=== PATIENT | male | born 1985 | race Caucasian/White ===

== ENCOUNTER 2019-05-04 16:08 | Emergency (ER) | payer OTHER, SELFPAY ==
[2019-05-04 16:11] VITALS: BP 120/84; PULSE 71; RESP 18; TEMP 36.6; O2SAT 94
[2019-05-04] MEDS: Povidone-Iodine Soln. 118 ML BTL (17:08)
--- NOTE | 2019-05-04 17:08 | ED.GENADUL_ITS ---
Discharge Plan Disposition Patient Disposition: HOME Condition: Good Discharge Details Chief Complaint: Laceration Clinical Impression: Laceration Primary Care Provider: Yaz Aragon ED Provider: Susanna Alvarado Home Meds and New Rx's Prescriptions: Continued dextroamphetamine-amphetamine [Adderall XR] 30 MG capsule,extended release 24hr 30 mg PO DAILY RF: 0 quetiapine [Seroquel] 50 MG tablet 50 mg PO HS RF: 0 Discharge Instructions Instructions: Laceration (ED) Additional Instructions: Keep initial dressing in place for 1 to 2 days then remove and begin cleaning once or twice daily. Wash with soap and water once or twice daily. Pat dry completely and apply topical antibiotic ointment. Suture removal in 10 to 14 days. Observe for any sign of infection. Return for any worsening or concerns sooner if needed Discharge Data Discharge Date/Time-TO BE ENTERED AT DEPARTURE: 05/04/19 18:20 Medical Decision Making Patient presents for laceration to the distal aspect of his fourth digit on his right hand which occurred at work. Wound sutured appropriately and irrigated extensively. Patient had no associated complication. Wound was dressed. Counseled regarding appropriate care and management as well as suture removal. Patient agrees with plan of care. Tetanus was provided as he was not up-to-date. HPI General Date/Time Provider Initiated Documentation: 05/04/19 17:05 . HPI Narrative: Patient presents for laceration to his distal right fourth digit. Lacerated his finger on work on a bottle. Patient's tetanus is unknown. No numbness, tingling or weakness. Flexion extension intact. No other complaints or concerns at this time. Injury occurred prior to arrival Related Data Home Medications Medication Instructions Recorded Confirmed dextroamphetamine-amphetamine 30 mg PO DAILY tab-cap 01/25/18 05/04/19 [Adderall XR] quetiapine [Seroquel] 50 mg PO HS 01/25/18 05/04/19 Allergies Allergy/AdvReac Type Severity Reaction Status Date / Time No Known Allergies Allergy Unverified 09/27/17 11:41 General Stated Complaint: Laceration ERROL: 4 Review of Systems Review of Systems Narrative: CONSTITUTIONAL: The patient denies fevers, chills. EYES: Denies vision changes, blurry vision, or eye pain. ENT: Denies hearing changes, tinnitus, vertigo, sore throat. CARDIAC: Denies chest pain, SOB. RESPIRATORY: Denies cough, sputum. Denies difficulty breathing. GASTROINTESTINAL: Denies abdominal pain, changes in bowel, vomiting or nausea. GENITOURINARY: Denies dysuria, or frequency of urination. MUSCULOSKELETAL: Denies Joint pain, gait changes. NEUROLOGIC: Denies headaches, Denies focal weakness. Denies numbness. INTEGUMENT: Denies rashes. Laceration PSYCHIATRIC: Denies behavior changes. Denies anxiety or depression. ENDOCRINOLOGY: Denies fatigue. PSYCHIATRY: Denies depression, agitation or anxiety ROS Unobtainable: All systems reviewed & are unremarkable except as noted in HPI and below PFSH Medical History ADHD (10/26/92) Bipolar disorder Tobacco use disorder Surgical History Left Index Finger (07/01/04) Family History Sister ADHD (attention deficit hyperactivity disorder) Brother ADHD (attention deficit hyperactivity disorder) Mother , COPD/alpha1 at age 42. [id number] deficiency Heart disease Hyperlipidemia COPD (chronic obstructive pulmonary disease) Sister No problems noted. Father Neoplasm ?? [place] Seizure disorder Son No problems noted. Son No problems noted. Daughter No problems noted. Social History Smoking/Tobacco Use Status: Current every day Alcohol Intake: current Alcohol Intake frequency: holidays/special occasions only Drug use: Occasionally Substance use type: marijuana Do you feel safe at home: Yes Exam Narrative Exam Narrative: CONST: Healthy appearing patient, in no acute distress. Well hydrated. Alert and alert. HENMT: Head nomocephalic, normal to inspection. Atraumatic. Hearing grossly normal. EYES: General normal appearance. Alignment normal. Eyelids normal. Conjunctiva normal. NECK: Normal visual inspection. FROM. Trachea midline. No Midline tenderness. CHEST: Normal insepection of the chest. RESP: Normal respiratory effort. Speaking full sentences. No cough. No audible wheezing. No retractions. CARDIO: No JVD. MUSCULOSKELETAL: Normal Gait. FROM of all extremities. SKIN: Normal. Dry. No rashes. NEURO: Alert and awake. Speech clear. PSYCH: Normal affect. Cooperative. Course Vital Signs Vital signs: Vital Signs Temperature 36.6 C 05/04/19 16:11 Pulse 71 05/04/19 16:11 Respiratory Rate 18 05/04/19 16:11 Blood Pressure 120/84 05/04/19 16:11 Pulse Oximetry 94 L 05/04/19 16:11 Temperature 36.6 C 05/04/19 16:11 Temperature Source Tympanic 05/04/19 16:11 Pulse 71 05/04/19 16:11 Respiratory Rate 18 05/04/19 16:11 Respiratory Effort Non-Labored 05/04/19 16:16 Blood Pressure 120/84 05/04/19 16:11 Blood Pressure Position Sitting 05/04/19 16:11 Pulse Oximetry 94 L 05/04/19 16:11 Oxygen Delivery Method Room Air 05/04/19 16:11 Oxygen Flow Rate 0 05/04/19 16:11 Pain Level 2 05/04/19 16:28 Procedures Laceration Laceration 1: Site: hand (Fourth digit distal laceration) Side (If applicable): right Size (cm): 2.0 Description: linear Depth: simple, single layer Local Anesthetic: Bupivicaine 0.5% Amount of anesthesia used (mL): 5 Pre-repair: wound explored and irrigated extensively Skin layer closed with: other (Prolene) Size (cm): 4-0 Number of sutures: 5 Technique: simple, interrupted
== END 2019-05-04 18:20 | disposition home or self-care (01) ==
PROVIDERS: Emergency Provider Physician Assistant; PCP Internal Medicine
DX: S61.214A Laceration without foreign body of right ring finger without damage to nail, initial encounter (principal); W25.XXXA Contact with sharp glass, initial encounter; Y99.0 Civilian activity done for income or pay
CPT/HCPCS: 12001; 90471

== ENCOUNTER 2019-05-19 13:13 | Emergency (ER) | payer OTHER, SELFPAY ==
[2019-05-19 13:22] VITALS: BP 120/81; PULSE 76; RESP 18; TEMP 36.7; O2SAT 98
--- NOTE | 2019-05-19 13:29 | W.ED.GENAD ---
Discharge Plan Disposition Patient Disposition: HOME Condition: Improving Discharge Details Chief Complaint: SutureRem Clinical Impression: Encounter for removal of sutures Primary Care Provider: Yaz Aragon ED Provider: Isiah Mora Home Meds and New Rx's Prescriptions: Continued dextroamphetamine-amphetamine [Adderall XR] 30 MG capsule,extended release 24hr 30 mg PO DAILY RF: 0 quetiapine [Seroquel] 50 MG tablet 50 mg PO HS RF: 0 Discharge Instructions Additional Instructions: Resume normal routine and activities. Return for any acute concern. Medical Decision Making 34-year-old male presents for suture removal. I performed uneventful suture removal in the wound was dressed. He is stable for discharge. HPI General Mode of arrival: ambulatory. Date/Time Provider Initiated Documentation: 05/19/19 13:28. Limitations to Documentation: no limitations. Information obtained by: patient. History of Present Illness 34 year old M presents to the emergency department with the chief complaint of Suture removal right ring finger, no complaints, Patient did receive the following treatments prior to arrival, none Related Data Home Medications Medication Instructions Recorded Confirmed dextroamphetamine-amphetamine 30 mg PO DAILY tab-cap 01/25/18 05/19/19 [Adderall XR] quetiapine [Seroquel] 50 mg PO HS 01/25/18 05/19/19 Allergies Allergy/AdvReac Type Severity Reaction Status Date / Time No Known Allergies Allergy Unverified 09/27/17 11:41 General Stated Complaint: SutureRem ERROL: 5 Review of Systems Review of Systems Narrative: No fever, redness, discharge [facility] Medical History ADHD (10/26/92) Bipolar disorder Tobacco use disorder Surgical History Left Index Finger (07/01/04) Family History Sister ADHD (attention deficit hyperactivity disorder) Brother ADHD (attention deficit hyperactivity disorder) Mother , COPD/alpha1 at age 42. [id number] deficiency Heart disease Hyperlipidemia COPD (chronic obstructive pulmonary disease) Sister No problems noted. Father Neoplasm ?? [place] Seizure disorder Son No problems noted. Son No problems noted. Daughter No problems noted. Social History Smoking/Tobacco Use Status: Current every day Alcohol Intake: current Alcohol Intake frequency: holidays/special occasions only Drug use: Occasionally Substance use type: marijuana Do you feel safe at home: Yes Exam Narrative Exam Narrative: The right ring finger shows healing distal laceration with sutures in place, removed without difficulty. Capillary refill is less than 2 seconds. Course Vital Signs Vital signs: Vital Signs Temperature 36.7 C 05/19/19 13:22 Pulse 76 05/19/19 13:22 Respiratory Rate 18 05/19/19 13:22 Blood Pressure 120/81 05/19/19 13:22 Pulse Oximetry 98 05/19/19 13:22 Temperature 36.7 C 05/19/19 13:22 Temperature Source Skin 05/19/19 13:22 Pulse 76 05/19/19 13:22 Respiratory Rate 18 05/19/19 13:22 Respiratory Effort Non-Labored 05/19/19 13:22 Blood Pressure 120/81 05/19/19 13:22 Pulse Oximetry 98 05/19/19 13:22 Oxygen Delivery Method Room Air 05/19/19 13:22 Oxygen Flow Rate 0 05/19/19 13:22 Pain Level 2 05/19/19 13:22
== END 2019-05-19 13:39 | disposition home or self-care (01) ==
PROVIDERS: Emergency Provider Emergency Medicine; PCP Internal Medicine
DX: S61.214D Laceration without foreign body of right ring finger without damage to nail, subsequent encounter (principal); Z48.02 Encounter for removal of sutures

== ENCOUNTER 2022-02-18 03:00 | Outpatient (CLI) | payer MEDICAID, SELFPAY | END 2022-02-18 03:01 | disposition home or self-care (01) | LOC: LBO 03:01 | PROVIDERS: PCP Internal Medicine; Visit Provider Family Medicine ==

== ENCOUNTER 2022-02-24 04:16 | Outpatient (CLI) | payer MEDICAID, SELFPAY | END 2022-02-24 04:17 | disposition home or self-care (01) | LOC: LOS 04:16 | PROVIDERS: PCP Internal Medicine; Visit Provider Family Medicine ==

== ENCOUNTER 2022-02-28 03:32 | Outpatient (CLI) | payer MEDICAID, SELFPAY ==
[2022-02-28 13:02] LABS: ALT 14 U/L (16-63); AST 13 U/L (15-37); Albumin 3.2 g/dL (3.4-5.0); Alkaline Phosphatase 106 U/L (46-116); Bilirubin, Direct 0.1 mg/dL (0.0-0.2); Bilirubin, Total 0.2 mg/dL (0.2-1.0); Lipase 43 U/L (73-393); Total Protein 7.3 g/dL (6.4-8.2)
[2022-02-28 22:12] LABS: CRP, High Sensitivity >15.00 mg/L (See Note)
== END 2022-02-28 03:33 | disposition home or self-care (01) ==
LOC: LOS 03:32
PROVIDERS: PCP Internal Medicine; Visit Provider Family Medicine
DX: R10.13 Epigastric pain (principal); R11.2 Nausea with vomiting, unspecified
CPT/HCPCS: 36415; 80076; 83690; 86141

== ENCOUNTER → 2022-03-18 00:40 | Outpatient (CLI) | payer MEDICAID, SELFPAY ==
--- NOTE | 2022-03-18 06:59 | DI.US_ITS ---
Exam(s) US ABDOMEN EXAM: US ABDOMEN CLINICAL HISTORY: R/O gall bladder, pancreatic issue, dyspepsia, R10.13 epigastric pain TECHNIQUE: Ultrasound abdomen performed using standard protocol. COMPARISON: No exams were available for comparison FINDINGS: ABDOMINAL AORTA AND IVC: Visualized portions normal caliber. PANCREAS: Normal where visualized. LIVER: Mildly echogenic liver. Hepatopedal flow in the Portal Vein. GALLBLADDER:No evidence of cholelithiasis. No evidence of wall thickening. No pericholecystic fluid i dentified. BILIARY SYSTEM: Common bile duct measures < 7 mm. No intrahepatic biliary ductal dilation. COLLINS'S SIGN: Negative. KIDNEYS: Kidneys are symmetric in size. There is a 7 mm echogenic focus in the right kidney consisten t with a nonobstructing stone. No evidence of hydronephrosis. No renal mass or cyst identified. SPLEEN: Not enlarged. ASCITES: None seen. IMPRESSION: 1. Normal sonographic appearance of the gallbladder. 2. Mild fatty infiltration of the liver. 3. Right nephrolithiasis. No evidence of obstruction. DATA REPOSITORY:
== END ==
PROVIDERS: PCP Internal Medicine; Visit Provider Family Medicine
DX: N20.0 Calculus of kidney (principal); R10.13 Epigastric pain; K76.0 Fatty (change of) liver, not elsewhere classified
CPT/HCPCS: 76700